=== PATIENT | male | born 1965 | race Caucasian/White ===

== ENCOUNTER 2019-10-29 09:01 | Outpatient (RCR) | payer BC ==
[~2019-10-29 09:01] MED LIST: CITA10TA70 PO; OMEP20CA12 PO
[2019-10-29 09:34] LABS: ABSOLUTE RETIC # 41 10e9/L (24-90); BASOPHILS % (AUTO) 1 % (0-10); EOSINOPHILS # (AUTO) 0.1 10^3/uL (0.0-0.3); EOSINOPHILS % (AUTO) 4 % (0-10); HEMATOCRIT 43 % (40-54); HEMOGLOBIN 14.7 G/DL (13.3-17.7); LYMPHOCYTES # (AUTO) 1.3 X 10^3 (1.0-4.0); LYMPHOCYTES % (AUTO) 34 % (12-44); MEAN CORPUSCULAR HEMOGLOBIN 33 PG (25-34); MEAN CORPUSCULAR HGB CONC 34 G/DL (32-36); MEAN CORPUSCULAR VOLUME 95 FL (80-99); MEAN PLATELET VOLUME 10.9 FL (7.4-10.4); MONOCYTES # (AUTO) 0.5 X 10^3 (0.0-1.0); MONOCYTES % (AUTO) 13 % (0-12); NEUTROPHILS # (AUTO) 1.9 X 10^3 (1.8-7.8); NEUTROPHILS % (AUTO) 49 % (42-75); PLATELET COUNT 145 10^3/uL (130-400); RETICULOCYTE % 0.91 % (0.50-2.40); WHITE BLOOD COUNT 3.9 10^3/uL (4.3-11.0)
[2019-10-29 10:05] LABS: ALANINE AMINOTRANSFERASE 22 U/L (0-55); ALBUMIN 4.4 GM/DL (3.2-4.5); ALKALINE PHOSPHATASE 52 U/L (40-136); BILIRUBIN,TOTAL 1.6 MG/DL (0.1-1.0); BUN/CREATININE RATIO 10; CALCIUM 9.8 MG/DL (8.5-10.1); CARBON DIOXIDE 28 MMOL/L (21-32); CHLORIDE 104 MMOL/L (98-107); CREATININE SERUM 1.15 MG/DL (0.60-1.30); GFR ESTIMATED > 60; GLUCOSE 92 MG/DL (70-105); POTASSIUM 4.3 MMOL/L (3.6-5.0); SODIUM 140 MMOL/L (135-145); TOTAL PROTEIN 7.5 GM/DL (6.4-8.2)
== END 2020-01-27 | disposition home or self-care (01) ==
LOC: ONC 09:01
PROVIDERS: ATTEND Internal Medicine Hematology & Oncology
DX: D61.818 Other pancytopenia (principal); R79.9 Abnormal finding of blood chemistry, unspecified; F41.9 Anxiety disorder, unspecified; R68.89 Other general symptoms and signs; Z98.890 Other specified postprocedural states
CPT/HCPCS: 80053; 82607; 82746; 83615; 84443; 85025; 85045; G0463; 99214

== ENCOUNTER 2020-08-26 08:33 | Outpatient (RCR) | payer BC ==
[2020-08-24 09:38] LABS: BASOPHILS % (AUTO) 1 % (0-10); EOSINOPHILS # (AUTO) 0.2 10^3/uL (0.0-0.3); EOSINOPHILS % (AUTO) 5 % (0-10); HEMATOCRIT 41 % (40-54); LYMPHOCYTES # (AUTO) 1.3 10^3/uL (1.0-4.0); LYMPHOCYTES % (AUTO) 36 % (12-44); MEAN CORPUSCULAR HEMOGLOBIN 33 pg (25-34); MEAN CORPUSCULAR HGB CONC 34 g/dL (32-36); MEAN CORPUSCULAR VOLUME 98 fL (80-99); MEAN PLATELET VOLUME 10.9 fL (9.0-12.2); MONOCYTES # (AUTO) 0.4 10^3/uL (0.0-1.0); MONOCYTES % (AUTO) 11 % (0-12); NEUTROPHILS # (AUTO) 1.7 10^3/uL (1.8-7.8); NEUTROPHILS % (AUTO) 47 % (42-75); PLATELET COUNT 128 10^3/uL (130-400); WHITE BLOOD COUNT 3.6 10^3/uL (4.3-11.0)
[2020-08-24 09:39] LABS: ALANINE AMINOTRANSFERASE 23 U/L (0-55); ALKALINE PHOSPHATASE 37 U/L (40-136); BUN/CREATININE RATIO 14; CALCIUM 9.4 MG/DL (8.5-10.1); CARBON DIOXIDE 26 MMOL/L (21-32); CHLORIDE 106 MMOL/L (98-107); GFR ESTIMATED > 60; GLUCOSE 96 MG/DL (70-105); POTASSIUM 4.3 MMOL/L (3.6-5.0); SODIUM 140 MMOL/L (135-145); TOTAL PROTEIN 6.8 GM/DL (6.4-8.2)
[2020-08-26 09:35] LABS: BASOPHILS % (AUTO) 1 % (0-10); EOSINOPHILS # (AUTO) 0.2 10^3/uL (0.0-0.3); EOSINOPHILS % (AUTO) 4 % (0-10); HEMATOCRIT 41 % (40-54); LYMPHOCYTES # (AUTO) 1.2 10^3/uL (1.0-4.0); LYMPHOCYTES % (AUTO) 34 % (12-44); MEAN CORPUSCULAR HEMOGLOBIN 34 pg (25-34); MEAN CORPUSCULAR HGB CONC 35 g/dL (32-36); MEAN CORPUSCULAR VOLUME 98 fL (80-99); MEAN PLATELET VOLUME 10.9 fL (9.0-12.2); MONOCYTES # (AUTO) 0.4 10^3/uL (0.0-1.0); MONOCYTES % (AUTO) 12 % (0-12); NEUTROPHILS # (AUTO) 1.7 10^3/uL (1.8-7.8); NEUTROPHILS % (AUTO) 48 % (42-75); PLATELET COUNT 139 10^3/uL (130-400); WHITE BLOOD COUNT 3.6 10^3/uL (4.3-11.0)
[2020-08-26 09:42] LABS: ABSOLUTE RETIC # 53 10e9/uL (24-90); RETICULOCYTE % 1.28 % (0.50-2.40)
[2020-08-26 09:51] LABS: BAND NEUTROPHILS 0 %; BASOPHILS % (MANUAL) 0 %; EOSINOPHILS % (MANUAL) 4 %; LYMPHOCYTES % (MANUAL) 39 %; MONOCYTES % (MANUAL) 7 %; NEUTROPHILS % (MANUAL) 50 %; RBC MORPH NORMAL
== END 2020-11-22 | disposition home or self-care (01) ==
LOC: ONC 08:33
PROVIDERS: ATTEND Internal Medicine Hematology & Oncology
DX: D61.818 Other pancytopenia (principal)
CPT/HCPCS: 38221; 80053; 83090; 83615; 83921; 85007; 85025; 85027; 85045; 88184; 88185; 88305; 88311; 88313; 99213

== ENCOUNTER 2022-02-13 12:19 | Outpatient (CLI) | payer BC ==
[~2022-02-13] VITALS: Ht 208.3 cm; Wt 100.2 kg
[2022-02-13] MEDS ORDERED: ASCO500T17 PO ×2 (12:30)
[2022-02-13] MEDS ORDERED: VITA0.4T18 PO ×2 (12:30)
[2022-02-13] MEDS ORDERED: CALC600T91 PO ×2 (12:30)
[2022-02-13] MEDS ORDERED: CHOL400T PO ×2 (12:30)
[2022-02-13] MEDS ORDERED: ASPI-808 PO ×2 (12:30)
[2022-02-13] MEDS ORDERED: ZINC50TA11 PO ×2 (12:30)
[2022-02-13] MEDS ORDERED: MELA10TA2 PO ×2 (12:30)
[2022-02-13] MEDS ORDERED: CITA20TA12 PO ×2 (12:30)
[2022-02-13] MEDS ORDERED: BUSP15TA60 PO ×2 (12:30)
[2022-02-13] MEDS ORDERED: FAMO20TA3 PO ×2 (12:30)
[2022-02-13] MEDS ORDERED: LORA-407 PO ×2 (12:30)
== END 2022-02-13 12:33 ==
LOC: PREOP 12:19
PROVIDERS: ATTEND Surgery
DX: Z01.818 Encounter for other preprocedural examination (principal); Z12.11 Encounter for screening for malignant neoplasm of colon

== ENCOUNTER 2022-02-14 12:50 | Day surgery (SDC) | payer BC ==
[~2022-02-14] VITALS: Ht 208 cm; Wt 100.2 kg
[~2022-02-14 12:50] MED LIST changes: +ASCO500T17 PO; +ASPI-808 PO; +BUSP15TA60 PO; +CALC600T91 PO; +CHOL400T PO; +CITA20TA12 PO; +FAMO20TA3 PO; +LORA-407 PO; +MELA10TA2 PO; +VITA0.4T18 PO; +ZINC50TA11 PO
[2022-02-14] MEDS ORDERED: LACTATED RINGERS 1,000 ML IV STA (12:52)
[2022-02-14] MEDS ORDERED: LIDOCAINE JELLY 2% 6 ML SYRINGE MM PRN (13:00)
[2022-02-14 13:10] VITALS: BP 130/89
--- NOTE | 2022-02-14 13:51 | Progress Note-Pre Operative ---
Pre-Operative Progress Note Date of Available H&P: Feb 14, 2022 Date H&P Reviewed: Feb 14, 2022 Time H&P Reviewed: 13:00 History & Physical: No changes noted Pre-Operative Diagnosis: screening o LORETO MCCARTHY MD Feb 14, 2022 13:51
--- NOTE | 2022-02-14 13:52 | Discharge Inst-Surgical ---
D/C Lap Instructions-SHARI Follow Up Activity as tolerated High Fiber Diet 25g or more per day Avoid Alcohol, Caffeine, Spicy [place] and Acid foods. Drink 64 fluid oz or more of fluids per day. Symptoms to Report: Fever over 101 degree F, Nausea/Vomiting If any problems/questions: Contact your physician or go to Emergency Room LORETO MCCARTHY MD Feb 14, 2022 13:52
[2022-02-14] MEDS ORDERED: ONDANSETRON 4 MG (ZOFRAN) ORAL DISSOLVE TAB PO PRN (14:00)
[2022-02-14] MEDS ORDERED: ONDANSETRON 4 MG/2 ML (SDV) Z0FRAN IVP PRN (14:00)
[2022-02-14] MEDS ORDERED: PROPOFOL INJECTION 50 ML IV ONE (15:27)
[2022-02-14 16:10] VITALS: BP 109/67
--- NOTE | 2022-02-14 16:14 | Anesthesia-General Post-Op ---
MAC Patient Condition Mental Status/LOC: Same as Preop Cardiovascular: Satisfactory Nausea/Vomiting: Absent Respiratory: Satisfactory Pain: Controlled Complications: Absent Post Op Complications Complications None Follow Up Care/Instructions Patient Instructions None needed. Anesthesiology Discharge Order Discharge Order Patient is doing well, no complaints, stable vital signs, no apparent adverse anesthesia problems. No complications reported per nursing. REJI DONALD CRNA Feb 14, 2022 16:14
--- NOTE | 2022-02-14 16:22 | Progress Note-Post Operative ---
Post-Operative Progess Note Surgeon (s)/Policy Checker (s) Surgeon LORETO MCCARTHY MD Policy Checker: none Pre-Operative Diagnosis screening colo Post-Operative Diagnosis mild chronic stage 2 ext and int hemorrhoids. Procedure & Operative Findings Date of Procedure 02/14/22 Procedure Performed/Findings colonoscopy Anesthesia Type mac Estimated Blood Loss Estimated blood loss (mL): minimal Specimens/Packing Specimens Removed none LORETO MCCARTHY MD Feb 14, 2022 16:22
[2022-02-14 16:38] VITALS: BP 109/67
--- NOTE | 2022-02-15 03:13 | OPERATIVE REPORT ---
DATE OF SERVICE: 02/14/2022 ATTENDING PRIMARY CARE PHYSICIAN: Stacy Freeman MD PREOPERATIVE DIAGNOSIS: Screening colonoscopy. POSTOPERATIVE DIAGNOSIS: Mild chronic stage II external and internal hemorrhoids. The remainder of the rectum and colon were normal. PROCEDURE: Colonoscopy. SURGEON:Chente Mccarthy MD ANESTHESIA: Monitored anesthesia care. ESTIMATED BLOOD LOSS: Minimal. FINDINGS: Mild chronic stage II external and internal hemorrhoids. The remainder of the rectum and colon were normal. Disposition: The patient tolerated the procedure well. INDICATIONS: The patient is a 56-year-old male referred over to us for screening colonoscopy. His last colonoscopy was approximately 10 years ago and he believes that he may have had a polyp, which was biopsied and found to be benign. He states that he is otherwise doing well, does not report any major issues with diarrhea, nor constipation as well as no red blood per rectum, nor any dark tarry stools. He also does not report any family history of colon cancer. DESCRIPTION OF PROCEDURE: The patient was brought to the endoscopy suite and laid in the left lateral decubitus position. After adequate IV pain and sedative medications and monitored anesthesia care, a digital rectal examination was performed. Mild chronic stage II, external, internal hemorrhoids were identified, which were not actively edematous or inflamed and no bleeding. Normal sphincter tone was felt and there were no palpable masses. Prostate gland was palpable and appeared normal. The endoscope was then intubated into the anus and rectum gently insufflated. The endoscope was then advanced through the valves of [place] of the rectum with no polyps or neoplasm was identified. We then proceeded through the sigmoid colon where no diverticulosis identified. The endoscope was then advanced through the remainder of the descending, transverse and ascending colon to the cecum, which were normal. There were no polyps or neoplasms identified throughout the colon or rectum. The endoscope was then slowly withdrawn while taking a second look and suctioning of residual air with no additional findings. The patient tolerated the procedure well. We will recommend medical management with a high fiber diet with the addition of fiber supplement, which equal or exceed 30 grams daily as well as significant amounts of water to promote soft consistency of stool at least once a day. If he is asymptomatic, he does not need another colonoscopy for another 10 years. Job ID: [id number] DocumentID: [id number] Dictated Date: 02/14/2022 16:07:03 Art Department Head Date: 02/15/2022 03:11:00 Dictated By: LORETO MCCARTHY MD [facility]
== END 2022-02-14 16:40 | disposition home or self-care (01) ==
LOC: ENDO 12:50
PROVIDERS: ATTEND Surgery
DX: Z12.11 Encounter for screening for malignant neoplasm of colon (principal); K64.1 Second degree hemorrhoids; K64.4 Residual hemorrhoidal skin tags; K21.9 Gastro-esophageal reflux disease without esophagitis